=== PATIENT | female | born 1955 | race Caucasian/White ===

== ENCOUNTER → 2017-03-28 | Outpatient (CLI) | payer BC ==
--- NOTE | 2017-03-28 14:10 | DIAGNOSTIC IMAGING REPORT ---
CHEST 2 VIEWS ROUTINE CLINICAL HISTORY: COUGH COMPARISON STUDY: No previous studies for comparison. FINDINGS: The heart is normal in size. There are left perihilar airspace opacity suspicious for pneumonia. Films subsequent to treatment are recommended in follow-up. There are no pleural effusions.[ IMPRESSION: Left perihilar airspace opacity suspicious for pneumonia. Films, subsequent to antibiotic therapy are recommended in follow-up.. Electronically signed by: Kvng Vines M.D. 03/28/2017 2:08 PM Dictated Date/Time: 03/28/2017 2:07 PM
== END | disposition home or self-care (01) ==
LOC: C.RAD1850 13:52
PROVIDERS: ATTEND Family Medicine
DX: R05 Cough (principal)

== ENCOUNTER → 2017-06-18 | Outpatient (CLI) | payer BC ==
--- NOTE | 2017-06-18 13:16 | MAMMOGRAPHY REPORT ---
BILATERAL DIGITAL SCREENING MAMMOGRAM TOMOSYNTHESIS WITH CAD: 06/18/2017 CLINICAL HISTORY: Routine screening. Patient has no complaints. TECHNIQUE: Breast tomosynthesis in addition to standard 2D mammography was performed. Current study was also evaluated with a Computer Aided Detection (CAD) system. COMPARISON: Comparison is made to exams dated: 11/30/2013 mammogram, 11/02/2012 mammogram, 10/28/2011 m ammogram, 10/22/2010 mammogram - [facility], 02/21/2009, and 01/27/2009. BREAST COMPOSITION: The tissue of both breasts is extremely dense, which lowers the sensitivity of m ammography. FINDINGS: There are stable benign-appearing grouped calcifications in the right upper outer quadrant, unchanged dating back to at least 2010, and therefore likely benign. No new suspicious mass, grabiel ectural distortion or cluster of microcalcifications is seen. IMPRESSION: ACR BI-RADS CATEGORY 1: NEGATIVE There is no mammographic evidence of malignancy. A 1 year screening mammogram is recommended. The pa tient will receive written notification of the results. Approximately 10% of breast cancers are not detected with mammography. A negative mammographic report should not delay biopsy if a clinically suggestive mass is present. Serena Hooker M.D. ay/:06/18/2017 12:48:29 Validation Manager: Nikky BASHIR(Corrina)(Matthieu)(BD), [facility] letter sent: Normal 1/2 BI-RADS Code: ACR BI-RADS Category 1: Negative
== END ==
LOC: C.MAMM 12:06
PROVIDERS: ATTEND Family Medicine
DX: Z12.31 Encounter for screening mammogram for malignant neoplasm of breast (principal)